=== PATIENT | female | born 1990 | race Two or more races ===

== ENCOUNTER 2018-05-15 04:28 | Emergency (ER) | payer SELFPAY ==
[~2018-05-15] VITALS: Ht 162.6 cm; Wt 70.3 kg
[2018-05-15] MEDS ORDERED: SODIUM CHLORIDE 0.9% 1,000 ML IVB ONE (04:53)
[2018-05-15 05:32] LABS: Urine Bacteria FEW /hpf (None Seen); Urine Blood Negative /uL (Negative); Urine Mucus FEW (None Seen); Urine WBC 1 /hpf (0 - 5)
[2018-05-15 05:38] LABS: Basophils # (auto) 0.1 uL; Basophils % (auto) 0.6 % (0.0-2.0); Eosinophils # (auto) 0.2 uL; Eosinophils % (auto) 1.8 % (0.0-7.0); Hematocrit 43.5 % (36.0-46.0); Hemoglobin 14.8 g/dL (12.2-16.2); Lymphocytes # (auto) 3.7 uL; Lymphocytes % (auto) 35.8 % (10.0-50.0); Mean Corpuscular Hgb Conc. 34.1 g/dL (32.0-36.0); Mean Corpuscular Volume 87.9 fL (80.0-100.0); Monocytes # (auto) 0.8 uL; Monocytes % (auto) 7.9 % (0.0-12.0); Neutrophils # (auto) 5.7 uL; Neutrophils % (auto) 53.9 % (37.0-80.0); Nucleated Red Blood Cells % 0.1 %; Platelet Count (auto) 242 10^3/uL (140-450); Red Blood Cells 4.95 10^6/uL (4.0-5.20); Red Cell Distribution Width 12.8 % (11.8-14.3); White Blood Cell 10.5 10^3/uL (4.4-10.8)
[2018-05-15 05:43] LABS: Albumin 3.2 g/dL (3.4-5.0); Calcium 8.6 mg/dL (8.5-10.1); Potassium 3.6 mmol/L (3.5-5.1)
[2018-05-15 05:45] LABS: BUN/Creatinine Ratio 16.7
[2018-05-15 05:54] LABS: Bilirubin, Total 0.2 mg/dL (0.2-1.0); Total Protein 6.8 g/dL (6.4-8.2)
[2018-05-15 08:54] VITALS: BP 112/70
== END 2018-05-15 09:21 | disposition home or self-care (01) ==
LOC: ER 04:28
DX: O26.612 Liver and biliary tract disorders in pregnancy, second trimester (principal); K80.50 Calculus of bile duct without cholangitis or cholecystitis without obstruction; Z3A.16 16 weeks gestation of pregnancy
CPT/HCPCS: 36415; 76705; 76801; 80053; 81001; 81025; 82150; 83690; 84702; 85025; 94761; 99285; J7030

== ENCOUNTER 2018-10-11 01:50 | Observation (INO) | payer OTHER | END 2018-10-11 02:43 | disposition home or self-care (01) | DRG 833 | LOC: LDRP 01:50 | PROVIDERS: ADMIT Obstetrics & Gynecology; ATTEND Obstetrics & Gynecology | DX: O00.01 Abdominal pregnancy with intrauterine pregnancy (principal); O26.893 Other specified pregnancy related conditions, third trimester; R10.9 Unspecified abdominal pain; O36.8130 Decreased fetal movements, third trimester, not applicable or unspecified; Z3A.37 37 weeks gestation of pregnancy | CPT/HCPCS: 59025; 81002; G0378 ==

== ENCOUNTER 2019-02-01 03:17 | Emergency (ER) | payer OTHER ==
[~2019-02-01] VITALS: Ht 162.6 cm; Wt 68.0 kg
[2019-02-01] MEDS ORDERED: ONDANSETRON HCL 4 MG/2 ML VIAL IV ONE (04:15)
[2019-02-01] MEDS ORDERED: MORPHINE SULFATE 4 MG/ML SYR/VIAL IV ONE (04:15)
[2019-02-01] MEDS ORDERED: SODIUM CHLORIDE 0.9% 1,000 ML IV ONE (04:15)
[2019-02-01 04:31] LABS: BUN/Creatinine Ratio 26.5; Calcium 8.9 mg/dL (8.5-10.1); Potassium 4.2 mmol/L (3.5-5.1)
[2019-02-01 04:33] LABS: Bilirubin, Total 0.3 mg/dL (0.2-1.0); Total Protein 7.7 g/dL (6.4-8.2)
[2019-02-01 05:02] VITALS: BP 105/52
[2019-02-01 06:24] LABS: Basophils # (auto) 0.1 uL; Basophils % (auto) 0.8 % (0.0-2.0); Eosinophils # (auto) 0.3 uL; Hematocrit 38.3 % (36.0-46.0); Lymphocytes # (auto) 3.2 uL; Lymphocytes % (auto) 40.2 % (10.0-50.0); Mean Corpuscular Hemoglobin 28.1 pg (28.0-32.0); Mean Corpuscular Hgb Conc. 33.8 g/dL (32.0-36.0); Mean Corpuscular Volume 82.9 fL (80.0-100.0); Monocytes # (auto) 0.7 uL; Monocytes % (auto) 8.3 % (0.0-12.0); Neutrophils # (auto) 3.7 uL; Neutrophils % (auto) 46.7 % (37.0-80.0); Nucleated Red Blood Cells % 0.1 %; Platelet Count (auto) 285 10^3/uL (140-450); Red Blood Cells 4.62 10^6/uL (4.0-5.20); Red Cell Distribution Width 14.6 % (11.8-14.3)
== END 2019-02-01 07:14 | disposition home or self-care (01) ==
LOC: ER 03:18
DX: K80.20 Calculus of gallbladder without cholecystitis without obstruction (principal)
CPT/HCPCS: 36415; 76705; 80053; 82150; 83690; 85025; 96374; 96375; 99284; J2270; J2405; J7030

== ENCOUNTER 2021-03-26 22:25 | Emergency (ER) | payer OTHER ==
[~2021-03-26] VITALS: Ht 162.6 cm; Wt 68.0 kg
[2021-03-26] MEDS ORDERED: ONDANSETRON ODT 4 MG TAB PO ONE (23:45)
[2021-03-26] MEDS ORDERED: HYDROcodone-ACET 10/325MG TAB PO ONE (23:45)
[2021-03-26 23:54] VITALS: BP 124/64
== END 2021-03-27 00:20 | disposition home or self-care (01) ==
LOC: ER 22:26
DX: S92.412A Displaced fracture of proximal phalanx of left great toe, initial encounter for closed fracture (principal); W23.0XXA Caught, crushed, jammed, or pinched between moving objects, initial encounter; Y93.89 Activity, other specified; Y92.89 Other specified places as the place of occurrence of the external cause; Y99.8 Other external cause status
CPT/HCPCS: 73660; 99283; Q0162

== ENCOUNTER 2023-09-03 20:27 | Emergency (ER) | payer OTHER ==
[~2023-09-03] VITALS: Ht 162.6 cm; Wt 68.1 kg
[2023-09-03 21:23] LABS: Basophils # (auto) 0 10 ^3/uL (0-0.2); Basophils % (auto) 0.6 % (0.0-2.0); Eosinophils # (auto) 0.2 10 ^3/uL (0-0.8); Eosinophils % (auto) 2.6 % (0.0-7.0); Hematocrit 41.1 % (36.0-46.0); Hemoglobin 13.8 g/dL (12.2-16.2); Lymphocytes # (auto) 3.7 10 ^3/uL (0.4-5.4); Lymphocytes % (auto) 50.1 % (10.0-50.0); Mean Corpuscular Hemoglobin 29.4 pg (28.0-32.0); Mean Corpuscular Hgb Conc. 33.5 g/dL (32.0-36.0); Mean Corpuscular Volume 87.9 fL (80.0-100.0); Monocytes # (auto) 0.7 10 ^3/uL (0-1.3); Monocytes % (auto) 10.2 % (0.0-12.0); Neutrophils # (auto) 2.7 10 ^3/uL (1.6-8.6); Neutrophils % (auto) 36.5 % (37.0-80.0); Red Blood Cells 4.68 10^6/uL (4.0-5.20); White Blood Cell 7.3 10^3/uL (4.4-10.8)
[2023-09-03 21:36] LABS: INR 0.98 (0.9-1.15); Partial Thromboplastin Time 28.8 SEC (24.5-34.5); Prothrombin Time 10.3 sec (9.3-11.8)
[2023-09-03 21:37] LABS: Alanine Aminotransferase 17 U/L (7-40); Albumin 4.5 g/dL (3.2-4.8); Alkaline Phosphatase 68 U/L (46-116); Anion Gap 8 (5-15); Aspartate Aminotransferase 17 U/L (13-40); BUN/Creatinine Ratio 18.3 (10.0-20.0); Blood Urea Nitrogen 11 mg/dL (9-23); Calcium 8.6 mg/dL (8.7-10.4); Carbon Dioxide 22 mmol/L (20-30); Chloride 109 mmol/L (98-107); Glucose 88 mg/dL (74-106); Lipase 53 U/L (12-53); Sodium 139 mmol/L (136-145)
[2023-09-03 21:38] LABS: Bilirubin, Total 0.3 mg/dL (0.2-1.0); Total Protein 7.1 g/dL (5.7-8.2)
[2023-09-03 23:40] VITALS: PULSE 73; RESP 20; O2SAT 99
[2023-09-03] MEDS: SODIUM CHLORIDE 0.9% 1,000 ML IVB ONE (23:45)
[2023-09-04 01:20] LABS: Urine Bacteria FEW /hpf (None Seen); Urine Blood 1+ /uL (Negative); Urine Clarity HAZY (Clear); Urine Color Yellow (Yellow); Urine Mucus FEW (None Seen); Urine Protein, UAD Negative (Negative); Urine Specific Gravity 1.019 (1.001-1.035); Urine Urobilinogen Normal (Negative); Urine WBC 3 /hpf (0 - 5); Urine pH 5.5 (5.0-8.0)
[2023-09-04] MEDS ORDERED: CEPH500T PO (03:13)
[2023-09-04] MEDS ORDERED: ACET-1304 PO (03:13)
[2023-09-04] MEDS ORDERED: PHEN95TA10 PO (03:13)
[2023-09-04 03:37] VITALS: BP 106/54; PULSE 69; RESP 18; TEMP 98; O2SAT 100
[2023-09-04] MEDS: PHENAZOPYRIDINE HCL 100 MG TAB PO ONE (03:39)
[2023-09-04] MEDS: CEPHALEXIN 250 MG CAP PO ONE (03:39)
== END 2023-09-04 03:37 | disposition home or self-care (01) ==
LOC: ER 20:27
DX: N39.0 Urinary tract infection, site not specified (principal); R10.2 Pelvic and perineal pain; Z98.890 Other specified postprocedural states; Z79.899 Other long term (current) drug therapy
CPT/HCPCS: 36415; 74176; 80053; 81001; 83605; 83690; 84484; 84702; 85025; 85610; 85730; 96360; 99284; J7030